=== PATIENT | male | born 1950 | race Caucasian/White ===

== ENCOUNTER 2019-05-24 15:13 | Emergency (ER) | payer OTHER, MEDICARE ==
[2019-05-24 15:22] VITALS: BP 177/85
--- NOTE | 2019-05-24 16:08 | XRAY Report ---
Reason: fall, rib pain Procedure Date: 05/24/2019 Accession Number: [id number] / [id number] Procedure: XR - Ribs w/PA Chest LT CPT Code: Final Report FULL RESULT: EXAM: LEFT RIB RADIOGRAPHY EXAM DATE: 05/24/2019 03:52 PM. CLINICAL HISTORY: Fall, rib pain. COMPARISON: None. TECHNIQUE: 1 view of the chest and 2 views of the ribs. FINDINGS: Bones: A total of 4 radiopaque markers have been placed over the left chest. No fracture or bone lesion. Lungs: No focal opacities. No pneumothorax. No pleural effusions. Mediastinum: Heart and mediastinal contours are unremarkable. Other: None. IMPRESSION: No displaced fracture is identified. RADIA
--- NOTE | 2019-05-24 16:53 | ED Physician Documentation ---
History of Present Illness - Stated complaint Stated Complaint: CHEST INJ - Chief complaint Chief Complaint: Trauma Ch/Bk - Additonal information Additional information: This is a 68-year-old male presents with left rib pain. He was getting into his truck this morning and his left leg slipped on some ice and he fell impacting the left lateral side of his chest. He had some soreness in the region, and after taking a nap he continued to feel sore so he came here to get checked out. His breathing feels okay, his not had any hemoptysis, denies any abdominal pain, no neck or head pain he has a mild abrasion on his left hand where he caught himself and he has no pain in his hand forearm elbow or elsewhere in his body. Review of Systems Constitutional: denies: Fever Cardiac: reports: Chest pain / pressure Respiratory: denies: Dyspnea GI: denies: Abdominal Pain Skin: reports: Abrasion (s) PD PAST MEDICAL HISTORY - Past Medical History Past Medical History: Yes Cardiovascular: Hypertension, High cholesterol Respiratory: None Neuro: None Endocrine/Autoimmune: None GI: None : None HEENT: None Psych: None Musculoskeletal: None Derm: None - Past Surgical History Past Surgical History: Yes General: Appendectomy - Present Medications Home Medications: Ambulatory Orders Medication Instructions Recorded Confirmed methocarbamoL [Methocarbamol] 500 mg PO TID PRN #15 tablet 05/24/19 - Allergies Allergies/Adverse Reactions: Allergies Allergy/AdvReac Type Severity Reaction Status Date / Time No Known Drug Allergies Allergy Verified 05/24/19 15:16 - Social History Does the pt smoke?: Yes Smoking Status: Current every day smoker Does the pt drink ETOH?: Yes Does the pt have substance abuse?: No - Immunizations Immunizations are current?: Yes - POLST Patient has POLST: No PD ED PE NORMAL - Vitals Vital signs reviewed: Yes - General General: Alert and oriented X 3, No acute distress - HEENT HEENT: Atraumatic, PERRL - Neck Neck: Supple, no meningeal sign - Cardiac Cardiac: RRR - Respiratory Respiratory: No respiratory distress, Clear bilaterally, Other (Focal tenderness in the anterior left chest just below the nipple region. There is no bruising, no deformity) - Abdomen Abdomen: Soft, Non tender, Non distended - Derm Derm: Warm and dry - Extremities Extremities: No deformity, Other (There is a small superficial abrasion on the left palm as well as the left elbow, no bony tenderness full range of motion of the joints, extremity neurovascularly intact) - Neuro Neuro: Alert and oriented X 3 - Psych Psych: Normal mood, Normal affect Results - Vitals Vitals: Vital Signs - 24 hr 05/24/19 15:16 Temperature 36.6 C Heart Rate 77 Respiratory 20 Rate Blood Pressure 177/85 H O2 Saturation 98 Oxygen O2 Source Room air - Rads (name of study) CXR with ribs Radiology: Other (No fractures or pneumothorax seen) PD MEDICAL DECISION MAKING - ED course ED course: Pt presents with isolated left anterior chest wall pain after a GLF. His O2 saturation is excellent, lungs are clear to auscultation, and he has no deformity, bruising, or crepitus. CXR with rib XR shows no displaced fracture. This appears to be a rib/chest wall contusion. I discussed care, follow up, and return precautions, prescribed methocarbamol after discussing its side effects, and pt was discharged home in good conditions. Departure - Departure Disposition: Home, Self Care Clinical Impression: Rib pain on left side Condition: Good Instructions: ED Contusion Chest Wall Follow-Up: Gabo Samano [Primary Care Provider] - Within 1 week Prescriptions: methocarbamoL [Methocarbamol] 500 mg PO TID PRN #15 tablet PRN Reason: Pain Comments: You were seen today for chest pain, your XR did not show any displaced rib fractures or collapsed lung, you might have a contusion or a very small fracture we are not able to see on the x-ray. Try Tylenol 650 mg and ibuprofen 600mg for pain, icing the area that hurts, and if you are having worsening symptoms such as coughing up blood, increased difficulty breathing, or severely increased chest pain, return to the emergency department. Otherwise please follow with your primary care provider Forms: Activity restrictions Discharge Date/Time: 05/24/19 17:02
== END 2019-05-24 17:02 | disposition home or self-care (01) ==
LOC: ED 15:13
DX: S29.9XXA Unspecified injury of thorax, initial encounter (principal); S60.512A Abrasion of left hand, initial encounter; S50.312A Abrasion of left elbow, initial encounter; R07.81 Pleurodynia; V58.4XXA Person boarding or alighting a pick-up truck or van injured in noncollision transport accident, initial encounter; Y99.0 Civilian activity done for income or pay; I10 Essential (primary) hypertension; F17.200 Nicotine dependence, unspecified, uncomplicated
CPT/HCPCS: 1040M; 99283; 99284